=== PATIENT | female | born 1990 | race Caucasian/White ===

== ENCOUNTER 2017-05-06 09:21 | Emergency (ER) | payer OTHER ==
[~2017-05-06] VITALS: Ht 170.2 cm; Wt 138.0 kg
[~2017-05-06 09:21] MED LIST: ACETAMINOPHEN-1 EAC1 PO; CEPHALEXIN500 MG PO; CLINDAMYCIN HC150 MG PO; CLINDAMYCIN HC300 MG PO; CLONIDINE HCL0.1 MG PO; IBUPROFEN200 MG PO; IBUPROFEN600 MG PO; IBUPROFEN800 MG PO; KLONOPIN1 MG PO; MIRTAZAPINE15 MG PO; NAPROSYN500 MG PO; NORCO 5-325 TA1 EACH PO; PERCOCET 10-321 EACH PO; TYLENOL WITH C1 EACH PO; TYLENOL325 MG PO
== END 2017-05-06 11:50 | disposition home or self-care (01) ==
LOC: ED 09:21
PROC: 0RSKXZZ Reposition Left Shoulder Joint, External Approach (ICD-10-PCS; principal; 2017-05-06)
DX: S43.015A Anterior dislocation of left humerus, initial encounter (principal); F17.200 Nicotine dependence, unspecified, uncomplicated; Z88.0 Allergy status to penicillin; Z88.8 Allergy status to other drugs, medicaments and biological substances; Z88.6 Allergy status to analgesic agent; Z88.5 Allergy status to narcotic agent; X58.XXXA Exposure to other specified factors, initial encounter
CPT/HCPCS: 23650; 73030; 96361; 96374; 99152; 99284; J2270; J2704; J7030